=== PATIENT | female | born 2000 | race Caucasian/White ===

== ENCOUNTER 2019-07-03 22:48 | Emergency (ER) | payer OTHER ==
[~2019-07-03] VITALS: Ht 165.1 cm; Wt 54.4 kg
[2019-07-03 22:55] VITALS: BP 93/62
--- NOTE | 2019-07-03 23:34 | NUR ---
19 Y/O FEMALE [facility]. PRESENTS TO ED WITH CHIEF COMPLAINT OF ALCOHOL INTOXICATION. REPORT RECEIVED FROM EMT. EMT STATES PT WAS AT [employer], HAD APPROXIMATELY 3 SHOTS OF LIQUOR. PT STARTED HAVING ANXIETY ATTACK AND DIFFICULTY BREATHING. PT HAD 1 EPISODE OF N/V. PT IS ALERT TO PERSON. UNABLE TO GIVE ANY VIABLE INFORMATION ABOUT WELL BEING. PT VSS. ERMD AWARE WILL CONTINUE TO MONITOR.
--- NOTE | 2019-07-04 00:09 | NUR ---
PT ASLEEP ON BED. ALERT ONLY TO NAME. PRESENTS LETHARGIC WITH MUMBLED SPEECH. NO N/V. DENIES ANY PAIN. DENIES ANY ANXIETY.
--- NOTE | 2019-07-04 00:44 | NUR ---
Dr. Monsalve examining patient.
[2019-07-04 01:05] VITALS: BP 94/56
--- NOTE | 2019-07-04 01:05 | NUR ---
PT DISCHARGED WITH PAPERWORK. NO RX PROVIDED. EDUCATED PT REGARDING D/C DIAGNOSIS AND INSTRUCTIONS. PT VERBALIZED UNDERSTANDING OF TEACHING. TOLD PT TO FOLLOW UP WITH PCP AND WHEN TO RETURN TO ED. PT VSS. ALL QUESTIONS ANSWERED.
== END 2019-07-04 01:05 | disposition home or self-care (01) ==
LOC: MED 22:48
DX: F10.129 Alcohol abuse with intoxication, unspecified (principal); F41.0 Panic disorder [episodic paroxysmal anxiety]; R11.2 Nausea with vomiting, unspecified
CPT/HCPCS: 99283